=== PATIENT | male | born 1990 | race Caucasian/White ===

== ENCOUNTER 2023-01-04 19:27 | Emergency (ER) | payer OTHER, SELFPAY ==
[2023-01-04 19:35] VITALS: BP 154/90; PULSE 98; RESP 17; TEMP 36.9; O2SAT 96; BMI 36.6
--- NOTE | 2023-01-04 19:37 | ED_ITS ---
HPI - Extremity Injury (Upper) General: Chief Complaint: Extremity Injury, Upper Stated Complaint: smashed hand at work Time Seen by Provider: 01/04/23 19:35 History of Present Illness: 32-year-old male patient was at work and was going to go out to work when the wind caught the door causing it to slam onto his right hand. Patient reports his second and third distal finger was caught in the door when it shot. Patient does have some mild bruising to the distal part of his index finger. No obvious deformity is noted. Mild swelling is noted. Cap refill is intact. Sensation is intact. 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 Incident occurred this afternoon. Review of Systems General: Reports: 10 or more systems reviewed and unremarkable except in HPI and below Const: Denies: fever(s) Musc: Reports: extremity pain and extremity swelling Physical Exam Const: COMMON NORMALS: alert HENMT: COMMON NORMALS: normocephalic HEAD & SCALP: normocephalic Resp: COMMON NORMALS: normal respiratory effort Cardio: COMMON NORMALS: regular rate RATE: regular rate Back/Pelvis: COMMON NORMALS: thoracic and lumbar spine normal to inspection Extremity: RIGHT UPPER EXTREMITY: Yes hand & digits (Distal index finger with mild ecchymosis and tenderness.) Right hand and digits: Yes inspection, Yes palpation, Yes ROM exam, Yes neurovascular exam and Yes tendon exam Neuro: SENSORIUM/ORIENTATION: Yes alert Skin: COMMON NORMALS: turgor normal GENERAL SKIN EXAM: turgor normal Course Vital Signs: Vital signs: Vital Signs Temperature 98.6 F 01/04/23 19:38 Pulse Rate 83 01/04/23 20:00 Respiratory Rate 16 01/04/23 19:38 Blood Pressure 135/88 01/04/23 19:38 Pulse Oximetry 98 01/04/23 19:38 Oxygen Delivery Me thod Room Air 01/04/23 19:38 MDM - Extremity Injury (Upper) Medical Decision Making 32-year-old male patient comes in today with injury to the right hand distal index and middle finger. On exam patient has some bruising and tenderness noted to the distal index finger. Small subungual hematoma was noted to the nail of the index finger. Middle finger appeared unremarkable. Patient has good range of motion of the hand and digits. Vital signs are normal. Differential diagnosis includes contusion, fracture, subungual hematoma, dislocation. X-ray of the hand noted no fracture or dislocation. Reviewed exam with patient with recommendations for treatment and follow-up. Patient reported understanding and agreed to plan. XR interpretation done by ED provider, pending radiology final review Discharge Plan Discharge Patient Disposition: Home Clinical Impression: Contusion of finger of right hand Qualifiers: Encounter type: initial encounter Finger: unspecified finger Qualified Code(s): S60.00XA - Contusion of unspecified finger without damage to nail, initial encounter Condition: Stable Discharge Orders: Discharge ED (Routine); Ordered 01/04/23 Ordered By: Antwan Hammonds Referrals: Kartik Douglas DO [Primary Care Provider] - Discharge Diet: Usual diet Discharge Activity: Increase activity as tolerated Patient Instructions: Contusion in Adults (ED) Activity Restrictions/Additional Instructions: Use acetaminophen and ibuprofen for pain. Activity as tolerated. Follow-up with primary care for further instructions. Coding Level of Care Code ED Television Producer for Melina Hdz
[2023-01-04 19:38] VITALS: BP 135/88; PULSE 83; RESP 16; TEMP 37; O2SAT 98
--- NOTE | 2023-01-04 19:40 | XRR_ITS ---
PROCEDURE INFORMATION: Exam: XR Right Hand Exam date and time: 01/04/2023 8:04 PM Age: 32 years old Clinical indication: Injury or trauma; Work related; Right; Patient HX: RT hand pain after crushing injury; HX forearm surg; Additional info: Right hand injury TECHNIQUE: Imaging protocol: Radiologic exam of the right hand. Views: 3 or more views. COMPARISON: No relevant prior studies available. FINDINGS: Bones/joints: Patient has had a previous right radial fracture repair. No acute fracture. No dislocation. Normal bone mineralization. No joint effusion. Joint spaces are maintained. Well defined lucent lesion in the proximal triquetrum bone suggestive of a benign fiber osseous lesion. Soft tissues: No soft tissue swelling. No radiopaque foreign body. XR/XR hand RT min 3V* [id number] IMPRESSION: 1. No acute fracture of the right hand. Followup imaging recommended in 7-14 days if clinical concern for fracture persists. 2. Well defined lucent lesion in the proximal triquetrum bone suggestive of a benign fiber osseous lesion. 3. Incidental/nonacute findings are listed in the report.
[2023-01-04 20:00] VITALS: PULSE 83
== END 2023-01-04 20:35 | disposition home or self-care (01) ==
PROVIDERS: Emergency Provider Nurse Practitioner Family; Family Provider Family Medicine; PCP Family Medicine
DX: S60.021A Contusion of right index finger without damage to nail, initial encounter (principal); W23.0XXA Caught, crushed, jammed, or pinched between moving objects, initial encounter; Y99.0 Civilian activity done for income or pay
CPT/HCPCS: 73130; 99283